=== PATIENT | female | born 1960 | race Caucasian/White ===

== ENCOUNTER 2016-10-26 22:31 | Emergency (ER) | payer SELFPAY ==
[~2016-10-26] VITALS: Ht 162.6 cm; Wt 68.2 kg
[2016-10-26 22:40] VITALS: Ht 162.6 cm; Wt 68.2 kg
== END 2016-10-26 23:30 | disposition left against medical advice (07) ==
LOC: E/R 22:31
DX: Z53.21 Procedure and treatment not carried out due to patient leaving prior to being seen by health care provider (principal)